=== PATIENT | female | born 1985 | race Two or more races ===

== ENCOUNTER 2021-05-16 03:48 | Inpatient (IN) ==
[2021-05-16] MEDS ORDERED: LACTATED RINGER'S 1,000 ML IV PRN (03:57)
[2021-05-16] MEDS ORDERED: OXYTOCIN 30 UNITS/500 ML BAG IV PRN ×2 (03:57→05:54)
[2021-05-16] MEDS ORDERED: IBUPROFEN 600 MG TAB PO ONE (04:05)
[2021-05-16] MEDS: IBUPROFEN 600 MG TAB PO PRN ×3 (04:08→19:39)
[2021-05-16 04:16] LABS: Hemoglobin 10.7 g/dL (12.0-16.0); Mean Corpuscular Hemoglobin 28.9 pg (25-34); Mean Corpuscular Hgb Conc 33.4 g/dL (32-36); Mean Corpuscular Volume 86.5 fL (80-100); Mean Platelet Volume 8.9 fL (7.4-10.4); Platelet Count 255 K/uL (130-400); RDW Coefficient of Variation 13.8 % (11.5-14.5); RDW Standard Deviation 43.2 fL (36.4-46.3); White Blood Count 11.21 K/uL (4.8-10.8)
--- NOTE | 2021-05-16 04:26 | History & Physical Report ---
Date of Service May 16, 2021 Assessment & Plan (1) state: Plan: 35 y/o s/p delivery at home VSS Exam demonstrated small tears, see op report Continue pp care Admission and Anticipated Discharge Date Admission Date: May 16, 2021 History of Present Illness Chief Complaint: s/p delivery at home Primary Care Provider: PABLITO Booker 35 y/o at 38 6/7 wga w/ LYNSEY 8/14 by LMP 11/7 presents following delivery at home. Notes was having irreg ctx that really were not timable throughout the evening. Around 1AM contractions rapidly worsened and they were going to call triage line to discuss presentation for evaluation however water broke and she delivered shortly thereafter at 245 at home with delivery of placenta at 325. She was brought to L&D on a stretcher and reports overall feeling ok. PNI: AMA Past [employer] Hx: G1 2014 in [facility] G2 current Regular monthly cycles 11/2020 neg cotest Denies hx STIs Allergies Allergy/AdvReac Type Severity Reaction Status Date / Time No Known Allergies Allergy Verified 05/15/21 10:06 Home Medications Medication Instructions Recorded Confirmed Type prenat.vits,shashank,qbq-fryb-piblv 1 tab PO DAILY 11/14/20 05/15/21 History Patient History Family History Grandmother (Maternal) Breast cancer Social History Smoking Status: Never smoker marital status: marital status details: Jesus (36) [phone] Current Living Situation: Spouse Current Living Situation Comment: lives with spouse, no pets. current occupational status: unemployed Physical Exam Constitutional: WD/WN, vitals as above Respiratory: normal respiratory effort; no respiratory distress and no labored breathing Genitourinary: Bilateral vaginal tears, R periclitoral tear Fundus firm at umbilicus Results & Data ([facility]) Vital Signs (Past 12 Hours) Vital Signs Pulse BP 05/16/21 04:10 61 108/69 05/16/21 03:52 70 113/66 Laboratory Results OB Labs: Blood Type A Positive 11/18/20 Antibody Screen NEGATIVE 11/18/20 Hemoglobin 11.2 g/dL (12.0-16.0) L 03/06/21 Hematocrit 33.4 % (37-47) L 03/06/21 Mean Corpuscular Volume 91.0 fL (80-100) 11/18/20 Platelet Count 271 K/uL (130-400) 11/18/20 Rubella IgG Antibody Immune (Immune) 11/18/20 Rapid Plasma Reagin Nonreactive (Nonreactive) 11/18/20 Hepatitis B Surface Antigen Neg (Neg) 11/18/20 HIV (1&2) Ab and P24 Ag, 4th Gener Neg (Neg) 11/18/20 Glucose 1 Hour 50 gm Load 134 mg/dl (70-130) H 12/09/20 Maternal Serum Alpha Fetoprotein 62.3 ng/mL 12/09/20 OB Optional Labs: Chlamydia trachomatis RNA NOT DETECTED (NOT DETECTED) 11/18/20 Neisseria gonorrhoeae RNA NOT DETECTED (NOT DETECTED) 11/18/20 Alpha Fetoprotein Triple Screen SEE NOTE 12/09/20 cfdna low risk neg cf/sma neg afp Code Status & VTE Plan VTE Prophylaxis Plan VTE Prophylaxis will be ordered: No Coding Level of Care Code None Diagnoses state Z39.2
--- NOTE | 2021-05-16 04:31 | Delivery Summary ---
Vaginal Delivery Summary Date of Service May 16, 2021 Vaginal Delivery Summary 1st Degree LAC (Repair of vaginal tears) PREOPERATIVE DIAGNOSIS: 1. Single intrauterine at 38 6/7 wga 2. Labor 3. s/p delivery at home POSTOPERATIVE DIAGNOSIS: 1. Single intrauterine at 38 6/7 wga 2. Labor 3. s/p delivery at home PROCEDURE: 1. Repair of lacerations. SURGEON: Fay Armstrong MD ANESTHESIA: Epidural. ESTIMATED BLOOD LOSS: 150ml during repair, EBL 200-300 on sheet, unclear how much bleeding prior to arrival FLUIDS: Continuous LR. URINE OUTPUT: None. COMPLICATIONS: None. CONDITION: Stable. INDICATIONS: 35 y/o at 38 6/7 wga w/ LYNSEY 05/24 by LMP 08/17 presents following delivery at home. Notes was having irreg ctx that really were not timable throughout the evening. Around 1AM contractions rapidly worsened and they were going to call triage line to discuss presentation for evaluation however water broke and she delivered shortly thereafter at 245 at home with delivery of placenta at 325. She was brought to L&D on a stretcher and reports overall feeling ok. FINDINGS: A viable female with Apgars of 9 and 10 at 1 and 5 minutes respectively per EMS SPECIMEN: None OPERATIVE REPORT: The patient was brought to L&D by stretcher by EMS following reported delivery of infant and placenta. IV was obtained and IV oxytocin and fundal massage were given for uterine tone. Vagina, cervix, perineum, and placenta were inspected. Bilateral vaginal tears and a R periclitoral tear were identified and repaired using 3-0 and 4-0 vicryl respectively following injection of lidocaine, there was excellent hemostasis. Placenta appeared to have delivered intact. Sponge and needle counts correct x2. No sponges were left behind. CBC and T&S were ordered. [facility] Vaginal Delivery Charge Delivery Type Details: 1st Degree LAC (Repair of vaginal tears)
[2021-05-16] MEDS ORDERED: LIDOCAINE 2% LOCAL 50 ML VIAL INSTIL ONE (04:49)
[2021-05-16] MEDS ORDERED: bisacodyL 10 MG SUPP PR PRN (05:54)
[2021-05-16] MEDS ORDERED: ACETAMINOPHEN 325 MG TAB PO PRN (05:54)
[2021-05-16] MEDS ORDERED: DIPHTHERIA/TETANUS/PERTUSSIS 0.5 ML SYR/VIAL IM ONE (05:54)
[2021-05-16] MEDS ORDERED: HYDROCORTISONE ACETATE 25 MG SUPP PR PRN (05:54)
[2021-05-16] MEDS ORDERED: SUPERCREAM 0.870% 15 GM JAR EXT PRN (05:54)
[2021-05-16] MEDS ORDERED: BENZOCAINE 20% AER SPR 82.5 GM CAN EXT PRN (05:54)
[2021-05-16] MEDS: DOCUSATE SODIUM 100 MG CAP PO SCH ×2 (08:14→19:40)
[2021-05-16] MEDS: PRENATAL VITAMIN 1 TAB PO SCH (08:15)
[2021-05-16] MEDS: FERROUS SULFATE 325 MG TAB PO SCH (08:15)
[2021-05-17 06:42] LABS: Hemoglobin 9.9 g/dL (12.0-16.0); Mean Corpuscular Hemoglobin 28.7 pg (25-34); Mean Platelet Volume 8.9 fL (7.4-10.4); Platelet Count 246 K/uL (130-400); RDW Coefficient of Variation 14.3 % (11.5-14.5); RDW Standard Deviation 44.9 fL (36.4-46.3); Red Blood Count 3.45 M/uL (4.2-5.4); White Blood Count 9.84 K/uL (4.8-10.8)
--- NOTE | 2021-05-17 07:49 | Obstetrical Progress Note ---
Date of Service <Jossie GonsaloDO - Last Filed: 05/17/21 07:49> May 17, 2021 Assessment & Plan <Jossie GonsaloDO - Last Filed: 05/17/21 07:49> (1) Encounter for care and examination after delivery: 35 yo post op day1 from delivered at home, doing well. -Continue routine post care. -vital signs reviewed and WNL (Tmax 37.1) -Blood Type A+, GBS-, Rubella immune -Encourage ambulation, monitor and control pain with Motrin, tylenol PRN, resume regular diet, monitor lochia -encourage breast feeding -hemoglobin 9.9 Day #:: 1 <Elisa Thomas MD, FACOG - Last Filed: 05/17/21 08:09> (1) Encounter for care and examination after delivery: Subjective <Jossie GonsaloDO - Last Filed: 05/17/21 07:49> Ambulation: ambulating normally Voiding: no voiding problems Passing Gas:: Yes Diet Tolerance:: regular diet Lochia:: Small Feeding Type:: breast feeding Current Pain Level(1-10): 2 (pain well controlled on medication) Review of Systems Denies fever, chills, sweats Denies shortness of breath, difficulty breathing, chest pain, palpitations, chest pressure. Denies breast pain. Denies dysuria. Denies headache or changes in vision. Physical Exam <Jossie GonsaloDO - Last Filed: 05/17/21 07:49> General: Alert, oriented. No acute distress. Cardiac: Regular rate and rhythm, no murmurs/rubs/gallops. Respiratory: Clear to auscultation bilaterally a/p, no wheezes/rales/rhonchi. No increased work of breathing. Symmetrical chest rise. No respiratory distress. Abdomen: Soft, nontender, nondistended. Bowel sounds present. Uterus: Uterine fundus firm, palpable 1 cm below umbilicus. Lower Extremities: No lower extremity edema or swelling. No deep calf pain. Brooklynn's negative bilaterally.. Results & Data ([facility]) <Jossie Brush DO - Last Filed: 05/17/21 07:49> Vital Signs (Past 12 Hours) Vital Signs Temp Pulse Resp BP Pulse Ox 05/16/21 23:45 37.1 C 71 16 107/68 95 05/16/21 19:48 37.1 C 73 16 99/68 L 98 Laboratory Results 05/17/21 Range/Units 06:21 WBC 9.84 (4.8-10.8) K/uL RBC 3.45 L (4.2-5.4) M/uL Hgb 9.9 L (12.0-16.0) g/dL Hct 30.0 L (37-47) % MCV 87.0 (80-100) fL MCH 28.7 (25-34) pg MCHC 33.0 (32-36) g/dL RDW Std Deviation 44.9 (36.4-46.3) fL RDW Coeff of Mesha 14.3 (11.5-14.5) % Plt Count 246 (130-400) K/uL MPV 8.9 (7.4-10.4) fL Medications Administered Current Inpatient Medications Acetaminophen (Acetaminophen 325 Mg Tab) 650 mg PO Q6H PRN PRN Reason: Pain/GEE/Fever Stop: 06/15/21 05:53 Benzocaine (Benzocaine 20% Aer Spr 82.5 Gm Can) 1 appln EXT PRN PRN PRN Reason: Perineal Discomfort Stop: 06/15/21 05:53 Bisacodyl (Bisacodyl 5 Mg Tabec) 5 mg PO 1999 [facility] Stop: 05/17/21 20:01 Bisacodyl (Bisacodyl 10 Mg Supp) 10 mg WI DAILY PRN PRN Reason: No BM on 2nd post- day Stop: 06/15/21 05:53 Cocaine HCl (Supercream 0.870% 15 Gm Jar) 1 gm EXT BID PRN PRN Reason: Hemorrhoidal Inflammation Stop: 05/30/21 05:53 Docusate Sodium (Docusate Sodium 100 Mg Cap) 100 mg PO DAILY@ [facility] Stop: 06/15/21 07:59 Last Admin: 05/16/21 19:40 Dose: 100 mg Documented by: Ferrous Sulfate (Ferrous Sulfate 325 Mg Tab) 325 mg PO DAILY@ [facility] Stop: 06/15/21 07:59 Last Admin: 05/16/21 08:15 Dose: 325 mg Documented by: Hydrocortisone (Hydrocortisone Acetate 25 Mg Supp) 25 mg WI BID PRN PRN Reason: Hemorrhoidal Inflammation Stop: 06/15/21 05:53 Oxytocin (Pitocin) 30 units in 500 mls @ 5,550 mls/hr IV .Q6M PRN; Protocol PRN Reason: Bleeding Control Stop: 06/15/21 03:56 Last Titration: 05/16/21 05:17 Dose: Infused Documented by: Lactated Ringer's (Lr) 1,000 mls @ 125 mls/hr IV .Q8H PRN; Protocol PRN Reason: L&D Protocol Stop: 05/18/21 03:56 Last Infusion: 05/16/21 05:53 Dose: 0 mls/hr Documented by: Oxytocin (Pitocin) 30 units in 500 mls @ 333.333 mls/hr IV .Q1H30M PRN; Protocol PRN Reason: Bleeding Control Ibuprofen (Ibuprofen 600 Mg Tab) 600 mg PO Q6H PRN PRN Reason: Pain Stop: 06/15/21 04:00 Last Admin: 05/16/21 19:39 Dose: 600 mg Documented by: Enocat Multivit/[place]/Iron/Folic Ac ( Vitamin 1 Tab) 1 tab PO DAILY@08 KENAN Stop: 06/15/21 07:59 Last Admin: 05/16/21 08:15 Dose: 1 tab Documented by: <Elisa Thomas MD, FACOG - Last Filed: 05/17/21 08:09> Co-Signing Physician Notes Resident Physician Supervision Note: I was present with Dr. Brush during the history and exam. I discussed the case with the resident and agree with the findings and plan as documented in the note. Any exceptions or clarifications are listed here: stable, doing well. eating, voiding, ambulating without problem. breast feeding. ready to go home. abd soft ff 2 down nt. nt calves. ppd#1 s/p precip delivery at home, doing well. stable for d/c home. instructions reviewed. f/u 6wk pp check. Rh pos, [place] Documented By: Elisa Thomas MD, FACOG Resident Activity Tracking <Jossie Brush DO - Last Filed: 05/17/21 07:49> Resident Involvement: Resident Care Provided Care Provided: OB Delivery
[2021-05-17] MEDS: DOCUSATE SODIUM 100 MG CAP PO SCH (08:25)
[2021-05-17] MEDS: FERROUS SULFATE 325 MG TAB PO SCH (08:25)
[2021-05-17] MEDS: PRENATAL VITAMIN 1 TAB PO SCH (08:25)
[2021-05-17] MEDS ORDERED: bisacodyL 5 MG TABEC PO SCH (20:00)
== END 2021-05-17 12:25 | disposition home or self-care (01) | DRG 807 ==
LOC: 4S1 03:48 → 4S2 06:16